=== PATIENT | male | born 1970 | race Caucasian/White ===

== ENCOUNTER 2021-03-12 14:17 | Emergency (ER) | payer BC, SELFPAY ==
[2021-03-12 14:24] VITALS: BP 157/93; PULSE 83; RESP 20; TEMP 37.3; O2SAT 99
--- NOTE | 2021-03-12 14:53 | ED.EAR ---
HPI - Ear Problem General Chief complaint: Ear Stated complaint: ear pain Time Seen by Provider: 03/12/21 14:53 Source: patient and RN notes reviewed Mode of arrival: ambulatory Limitations: no limitations History of Present Illness HPI Narrative: 51 year old male who present to [facility] care with complaints of pain and pressure to his left ear for one week duration. He reports that the left side of his face is even painful. He states that he has been using some OTC ear pain drops for his discomfort. Patient states that he has had no drainage from his left ear. MD Complaint: ear pain Location: left ear Related Data Home Medications Medication Instructions Recorded Confirmed losartan 100 mg PO DAILY 03/12/21 03/12/21 Allergies Allergy/AdvReac Type Severity Reaction Status Date / Time No Known Allergies Allergy Verified 03/12/21 14:41 Review of Systems Review of Systems: CONSTITUTIONAL: Denies fever, chills, or sweats. EYES: Denies visual changes, redness, or discharge. ENT: Positive rhinorrhea,no congestion, sore throat, positive for left otalgia. CARDIOVASCULAR: Denies chest pain, palpitations, or edema. RESPIRATORY: Denies cough or dyspnea. GASTROINTESTINAL: Denies abdominal pain, nausea, vomiting, or diarrhea. GENITOURINARY: Denies dysuria or hematuria. SKIN: Denies rash or itching. MUSCULOSKELETAL: Denies back pain, joint pain, or myalgia. NEUROLOGIC: Denies headache, numbness, or weakness. PSYCHIATRIC: Denies anxiety or depression. All systems reviewed & are unremarkable except as noted in HPI and below PMFSH Comments At time of signature agree with documentation of past medical, surgical, social and family history. there is no relevant family history pertinent to presenting complaint. Exam Narrative: GENERAL: Well-appearing, well-nourished, and in no acute distress. HEAD: Normocephalic, atraumatic. EYES: PERRLA and EOMI. ENT: Nares pink,scant clear rhinorrhea or epistaxis. Mucous membranes moist.Left TM normal with good light reflex,ear canal red excoriated and swollen, Right TM normal with good light reflex. Throat pink with no exudates or lesions or any tonsil enlargement NECK: Supple.no lymphadenopathy CHEST: Clear to auscultation. No respiratory distress.SAO2 99% on room air HEART: Regular rate and rhythm. No murmur heard. Normal peripheral pulses. ABDOMEN: Soft, nontender, nondistended, normal active bowel sounds. EXTREMITIES: Normal range of motion. No edema. SKIN: Warm, dry, no rash. NEURO: No focal deficits. Alert and oriented x3. Course Vital Signs Vital signs: Vital Signs Temperature 37.3 C 03/12/21 14:24 Pulse Rate 83 03/12/21 14:24 Respiratory Rate 20 03/12/21 14:24 Blood Pressure 157/93 H 03/12/21 14:24 Pulse Oximetry 99 03/12/21 14:24 Temperature 37.3 C 03/12/21 14:24 Pulse Rate 83 03/12/21 14:24 Respiratory Rate 20 03/12/21 14:24 Blood Pressure 157/93 H 03/12/21 14:24 Pulse Oximetry 99 03/12/21 14:24 Medical Decision Making Differential Diagnosis Differential Diagnosis: otitis externa, otitis media, sinusitis, URI Medical Records Medical records reviewed: Yes I reviewed the external patient's medical records. Vital Signs Vital Signs: Vital Signs Temperature 37.3 C 03/12/21 14:24 Pulse Rate 83 03/12/21 14:24 Respiratory Rate 03/12/21 14:24 Blood Pressure 157/93 H 03/12/21 14:24 Pulse Oximetry 99 03/12/21 14:24 Temperature 37.3 C 03/12/21 14:24 Pulse Rate 83 03/12/21 14:24 Respiratory Rate 03/12/21 14:24 Blood Pressure 157/93 H 03/12/21 14:24 Pulse Oximetry 99 03/12/21 14:24 Critical Care Time Critical Care Time Critical Care Time: No Discharge Plan Discharge Clinical Impression: Otitis externa of left ear Patient Disposition: Home, Self-Care Condition: Stable Instructions: Swimmer's Ear (GEN) Additional Instructions: Increase fluids especially juices and water [id number]
== END 2021-03-12 15:40 | disposition home or self-care (01) ==
PROVIDERS: Emergency Provider Registered Nurse; PCP Internal Medicine
DX: H60.92 Unspecified otitis externa, left ear (principal); I10 Essential (primary) hypertension
CPT/HCPCS: 99213; G0463